=== PATIENT | female | born 1980 | race Caucasian/White ===

== ENCOUNTER → 2016-06-08 | Outpatient (CLI) | payer OTHER ==
--- NOTE | 2016-06-08 11:39 | RAD ---
DATE: 06/08/2016 EXAM: MAMMO NICOLLE DIAG RT, BREAST RIGHT HISTORY: Right breast lump COMPARISON: 10/01/2015 This study was interpreted with the benefit of Computerized Aided Detection (CAD). FINDINGS: 2-D and 3-D tomosynthesis imaging of the right breast was performed in CC and MLO projections. A BB was placed over the area of reported palpable concern at approximately the 12:00 location. The breasts are heterogeneously dense. No new or enlarging breast densities are seen. Minimal benign type calcification is present. No suspicious microcalcifications are delineated. Right breast ultrasound, 06/08/2016: A targeted ultrasound exam of the right breast was performed at the 12:00 location in the area of reported palpable concern. Heterogeneous fibroglandular shadows are present. No cystic or solid breast mass is seen. IMPRESSION: 1. Stable right mammograms without evidence of malignancy. 2. The targeted ultrasound exam shows no abnormality in the area of palpable concern. Clinical surveillance is suggested. BI-RADS CATEGORY: 2 BENIGN FINDING(S) RECOMMENDED FOLLOW-UP: CLIN FOLLOW UP IMAGING CLINICALLY INDICATED PQRS compliance statement: Patient information was entered into a reminder system with a target due date for the next mammogram. Mammography is a sensitive method for finding small breast cancers, but it does not detect them all and is not a substitute for careful clinical examination. A negative mammogram does not negate a clinically suspicious finding and should not result in delay in biopsying a clinically suspicious abnormality. "Our facility is accredited by the [employer] Mammography [employer]."
== END | disposition home or self-care (01) ==
LOC: MAMMO 09:47
PROVIDERS: ATTEND Physician Assistant
DX: N63 Unspecified lump in breast (principal)
CPT/HCPCS: 76641; G0206; G0279; 77061; 77065

== ENCOUNTER → 2017-02-27 | Outpatient (CLI) | payer OTHER ==
--- NOTE | 2017-02-27 10:42 | RAD ---
DATE: February 27, 2017 EXAM: MAMMO NICOLLE LOPEZ, BREAST RIGHT HISTORY: Persistent palpable abnormality right breast. Annual screening left breast. COMPARISON: June 08, 2016 diagnostic right mammogram and ultrasound. October 01, 2015 bilateral mammogram. TECHNIQUE: 2D digital CC and MLO views were obtained. 3D tomosynthesis imaging was performed in the CC and MLO projections. Limited right breast ultrasound also was performed. This study was interpreted with the benefit of Computerized Aided Detection (CAD). FINDINGS: The breast parenchyma is heterogeneously dense, category C, which may obscure small masses. There is no worrisome mass or area of architectural distortion. There are a few benign calcifications. There are no suspicious groupings of microcalcifications. Ultrasound of the right breast at the area of concern at the 12:00 position demonstrates no mass, cyst, or spiculated lesion. Normal parenchymal band of tissue is noted. IMPRESSION: Stable mammogram with benign findings. No sonographic evidence of malignancy. BI-RADS CATEGORY: 2 BENIGN FINDING RECOMMENDED FOLLOW-UP: 12M 12 MONTH FOLLOW-UP . Clinical discussion between this patient and her clinician is also recommended. Lack of mammographic or sonographic findings should not exclude consideration of excisional biopsy in the appropriate clinical setting. PQRS compliance statement: Patient information was entered into a reminder system with a target due date for the next mammogram. Mammography is a sensitive method for finding small breast cancers, but it does not detect them all and is not a substitute for careful clinical examination. A negative mammogram does not negate a clinically suspicious finding and should not result in delay in biopsying a clinically suspicious abnormality. "Our facility is accredited by the [employer] Mammography [employer]."
== END | disposition home or self-care (01) ==
LOC: MAMMO 08:55
PROVIDERS: ATTEND Specialist
DX: R92.1 Mammographic calcification found on diagnostic imaging of breast (principal)
CPT/HCPCS: 76641; G0204; G0279; 77062; 77066

== ENCOUNTER 2017-03-04 15:27 | Emergency (ER) | payer OTHER ==
[2017-03-04 15:36] VITALS: BP 139/84
[2017-03-04] MEDS ORDERED: DIPHTH,PERTUSS(ACELL),TET TOX 0.5 ML DISP.SYRIN. VAX IM ONE (15:45)
--- NOTE | 2017-03-04 15:51 | PHYS DOC ---
Past History Past Medical History: Anxiety, Depression, GERD Past Surgical History: No Surgical History Alcohol Use: Occasionally Drug Use: None Adult General Chief Complaint Chief Complaint: PUNCTURE WOUND HPI HPI 36-year-old female presenting to the emergency department after axially poking her right hand into some nati nails while she was pulling up carpet. She presents today for a tetanus shot up-to-date. She has mild pain in her fingers that is nonradiating intermittent and without alleviating factors. She denies any other injuries. Review of systems is negative for headache chest pain shortness of breath abdominal pain. All other review of systems is negative unless otherwise noted in history of present illness. ED course: 36-year-old female presenting to the emergency department today after getting poked on her fingers with some nati nails while pulling up carpet. Tetanus was updated. Vital signs unremarkable. Pertinent physical examination findings: Less than 0.1 mm small puncture wounds in the first and second phalanx. No lacerations or ecchymosis or abrasions to the hand. Both hands are neurovascularly intact with normal range of motion. Otherwise no other identifiable injuries. They were to return if their symptoms worsened or if they were concerned for any reason. [id number] discharge instructions and return precautions were given. Patient's questions were answered to their satisfaction. Patient is comfortable plan. Review of Systems Review of Systems SEE ABOVE. Current Medications Current Medications Current Medications Medications (Trade) Dose Ordered Sig/Kymberly Start Time Stop Time Status Last Admin Dose Admin Diphtheria/ Tetanus/Acell Pertussis (Boostrix) 0.5 ml ONCE ONCE 03/04/17 15:45 03/04/17 15:46 UNV 03/04/17 15:50 0.5 ML Allergies Allergies Allergies Coded Allergies Type Severity Reaction Last Updated Verified duloxetine Allergy Unknown 03/04/17 Yes Physical Exam Physical Exam SEE ABOVE Constitutional: Well developed, well nourished, no acute distress, non-toxic appearance. HENT: Normocephalic, atraumatic, bilateral external ears normal, oropharynx moist, no oral exudates, nose normal. [] Eyes: PERRLA, EOMI, conjunctiva normal, no discharge. Neck: Normal range of motion, no tenderness, supple, no stridor. [] Cardiovascular:Heart rate regular rhythm, no murmur Lungs & Thorax: Bilateral breath sounds clear to auscultation [] Abdomen: Bowel sounds normal, soft, no tenderness, no masses, no pulsatile masses. [] Skin: Warm, dry, no erythema, no rash. [] Back: No tenderness, no CVA tenderness. [] Extremities: SEE ABOVE Neurologic: Alert and oriented X 3, normal motor function, normal sensory function, no focal deficits noted. [] Psychologic: Affect normal, judgement normal, mood normal. [] Current Patient Data Vital Signs Vital Signs Date Time Temp Pulse Resp B/P (MAP) Pulse Ox O2 Delivery O2 Flow Rate FiO2 03/04/17 15:36 98.5 89 16 97 Room Air EKG EKG [] Radiology/Procedures Radiology/Procedures [] Course & Med Decision Making Course & Med Decision Making Pertinent Labs and Imaging studies reviewed. (See chart for details) [] Dragon Disclaimer Dragon Disclaimer This electronic medical record was generated, in whole or in part, using a voice recognition dictation system. Departure Departure: Impression: Primary Impression: Puncture wound of hand Disposition: HOME, SELF-CARE Condition: STABLE Referrals: DOMENICO ROBERSON MD (PCP) Patient Instructions: Puncture Wound, [id number] Additional Instructions: Thank you for allowing us to participate in your care today. Call your Primary Doctor tomorrow and inform them of your visit today. If you do not have a primary care provider you can ask for a list of our primary care providers. Return to the emergency department you have any new or concerning findings. This should be evaluated by the primary care physician and any necessary consulting services for continued management within a few days after discharge. Return to emergency room if you have any new or concerning symptoms including but not limited to fever, chills, nausea, vomiting, intractable pain, any new rashes, chest pain, shortness of air, uncontrolled bleeding, difficulty breathing, and/or vision loss. PETRA DE LA TORRE MD Mar 04, 2017 15:51
== END 2017-03-04 15:58 | disposition home or self-care (01) ==
LOC: ER 15:27
DX: S61.431A Puncture wound without foreign body of right hand, initial encounter (principal); K21.9 Gastro-esophageal reflux disease without esophagitis; Z88.8 Allergy status to other drugs, medicaments and biological substances; W45.0XXA Nail entering through skin, initial encounter; Y93.89 Activity, other specified; Y99.8 Other external cause status; Y92.89 Other specified places as the place of occurrence of the external cause
CPT/HCPCS: 90471; 90715; 99283-25

== ENCOUNTER → 2017-11-17 | Outpatient (CLI) | payer OTHER ==
[2017-11-17 16:07] LABS: BASO # 0.1 x10^3/uL (0.0-0.2); BASO % 1 % (0-3); EOS # 0.2 x10^3/uL (0.0-0.7); EOS % 2 % (0-3); HEMATOCRIT 40.9 % (36.0-47.0); LYMPH # 1.9 x10^3/uL (1.0-4.8); LYMPH % 22 % (24-48); MEAN CORPUSCULAR HEMOGLOBIN 30 pg (25-35); MEAN CORPUSCULAR HGB CONC 34 g/dL (31-37); MEAN CORPUSCULAR VOLUME 88 fL (79-100); MONO # 0.5 x10^3/uL (0.0-1.1); MONO % 6 % (0-9); NEUT % 69 % (31-73); PLATELET COUNT 371 x10^3/uL (140-400); RED BLOOD COUNT 4.63 x10^6/uL (3.50-5.40); RED CELL DISTRIBUTION WIDTH 13.1 % (11.5-14.5); WHITE BLOOD COUNT 8.6 x10^3/uL (4.0-11.0)
[2017-11-17 16:37] LABS: CALCIUM 8.8 mg/dL (8.5-10.1); CREATININE 0.9 mg/dL (0.6-1.0); GFR 70.1; POTASSIUM 3.8 mmol/L (3.5-5.1)
[2017-11-18 01:11] LABS: HEMOGLOBIN A1C 5.4 % (4.8-5.6)
== END | disposition home or self-care (01) ==
LOC: LAB 15:08
PROVIDERS: ATTEND Specialist
DX: R12 Heartburn (principal); K21.9 Gastro-esophageal reflux disease without esophagitis; Z68.32 Body mass index [BMI] 32.0-32.9, adult; Z85.3 Personal history of malignant neoplasm of breast
CPT/HCPCS: 36415; 80048; 83036; 84443; 85025

== ENCOUNTER → 2018-04-11 | Outpatient (CLI) | payer OTHER ==
--- NOTE | 2018-04-12 08:37 | RAD ---
DATE: 04/11/2018 EXAM: MAMMO NICOLLE SCREENING BILATERAL HISTORY: Routine screening COMPARISON: 02/27/2017 This study was interpreted with the benefit of Computerized Aided Detection (CAD). Breast Density: HETERO The breast parenchyma is heterogenously dense, which could reduce sensitivity of mammography. Breast parenchyma level C. FINDINGS: 2-D and 3-D tomosynthesis imaging was performed in CC and MLO projections. No new or enlarging breast densities are seen. No suspicious microcalcifications are evident. IMPRESSION: Stable mammograms without evidence of malignancy. BI-RADS CATEGORY: 2 BENIGN FINDING(S) RECOMMENDED FOLLOW-UP: 12M 12 MONTH FOLLOW-UP PQRS compliance statement: Patient information was entered into a reminder system with a target due date for the next mammogram. Mammography is a sensitive method for finding small breast cancers, but it does not detect them all and is not a substitute for careful clinical examination. A negative mammogram does not negate a clinically suspicious finding and should not result in delay in biopsying a clinically suspicious abnormality. "Our facility is accredited by the [employer] Mammography [employer]."
== END | disposition home or self-care (01) ==
LOC: MAMMO 15:01
PROVIDERS: ATTEND Specialist
DX: Z12.31 Encounter for screening mammogram for malignant neoplasm of breast (principal)
CPT/HCPCS: 77063; 77067

== ENCOUNTER → 2018-05-26 | Outpatient (CLI) | payer OTHER ==
[2018-05-26 11:42] LABS: BASO # 0.1 x10^3/uL (0.0-0.2); BASO % 1 % (0-3); EOS % 1 % (0-3); HEMATOCRIT 42.3 % (36.0-47.0); HEMOGLOBIN 14.2 g/dL (12.0-15.5); LYMPH # 1.5 x10^3/uL (1.0-4.8); LYMPH % 18 % (24-48); MEAN CORPUSCULAR HEMOGLOBIN 30 pg (25-35); MEAN CORPUSCULAR HGB CONC 34 g/dL (31-37); MEAN CORPUSCULAR VOLUME 89 fL (79-100); MONO # 0.7 x10^3/uL (0.0-1.1); MONO % 8 % (0-9); NEUT # 6.1 x10^3uL (1.8-7.7); NEUT % 73 % (31-73); PLATELET COUNT 367 x10^3/uL (140-400); RED BLOOD COUNT 4.74 x10^6/uL (3.50-5.40); RED CELL DISTRIBUTION WIDTH 13.1 % (11.5-14.5); WHITE BLOOD COUNT 8.4 x10^3/uL (4.0-11.0)
[2018-05-26 11:59] LABS: ALBUMIN 3.7 g/dL (3.4-5.0); CALCIUM 9.2 mg/dL (8.5-10.1); CREATININE 0.9 mg/dL (0.6-1.0); GFR 69.7; POTASSIUM 4.4 mmol/L (3.5-5.1); TOTAL BILIRUBIN 1.9 mg/dL (0.2-1.0); TOTAL PROTEIN 7.4 g/dL (6.4-8.2)
== END | disposition home or self-care (01) ==
LOC: LAB 10:52
PROVIDERS: ATTEND Physician Assistant Medical
DX: R07.2 Precordial pain (principal)
CPT/HCPCS: 36415; 80053; 85025

== ENCOUNTER 2018-05-29 04:43 | Emergency (ER) | payer OTHER ==
[~2018-05-29] VITALS: Ht 165.1 cm; Wt 84.0 kg
[2018-05-29] MEDS ORDERED: IV RINGERS SOLUTION,LACTATED 1,000 ML IV SCH (04:55)
--- NOTE | 2018-05-29 04:55 | ED.ADGEN ---
Past History Past Medical History: Anxiety, Depression, GERD (JUAN PABLO SELF MD) Past Surgical History: No Surgical History (JUAN PABLO SELF MD) Alcohol Use: Occasionally Drug Use: None (JUAN PABLO SELF MD) Adult General Chief Complaint Chief Complaint ".. I got really sick after some junk food.. and beer,.. pizza on this past Monday.. I did see Dr. Hall... and she felt may gastris or gall bladder problems..".." ..She gave me an anti acid... but it is not helping... 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 upper and epigastric quadrant pain. Patient states pain started severely on Monday after beer and pizza. Pt. only has alcohol use occasionally on week ends. Did see primary care Dr. Hall, she felt possibly acid indigestion versus gallbladder pain. Patient has a strong family history of members that required removal of gallbladder at her age. Patient denies any specific ill contacts out side of her work.. Patient denies any intake of bad food. Patient denies any history of tarry or dark stools. Patient denies any trauma. Patient denies any travel. Patient still has menstruation and does not know if she is . No history of kidney stones. No history of colitis with her or her family members. No personal history of angina or cardiac disease. No history of EGD or colonoscopy. Some history of depression and anxiety. Does give a history of periodic GERD complaints. Patient normally follows with Dr. Hall. (JUAN PABLO SELF MD) Review of Systems Review of Systems Constitutional: Denies fever or chills [] Eyes: Denies change in visual acuity, redness, or eye pain [] HENT: Denies nasal congestion or sore throat [] Respiratory: Denies cough or shortness of breath [] Cardiovascular: No additional information not addressed in HPI [] GI: Complaints of epigastric and right upper quadrant abdominal pain. Complaints of, nausea,. Denies current vomiting, bloody stools or diarrhea [] : Denies dysuria or hematuria [] Musculoskeletal: Denies back pain or joint pain [] Integument: Denies rash or skin lesions [] Neurologic: Denies headache, focal weakness or sensory changes [] Endocrine: Denies polyuria or polydipsia [] All other systems were reviewed and found to be within normal limits, except as documented in this note. (JUAN PABLO SELF MD) Family History Family History Gallbladder surgery at age 40 with family members (JUAN PABLO SELF MD) Current Medications Current Medications Current Medications Medications (Trade) Dose Ordered Sig/Kymberly Start Time Stop Time Status Last Admin Dose Admin Ceftriaxone Sodium 1 gm/ Sodium Chloride 50 ml @ 100 mls/hr 1X ONCE 05/29/18 07:30 05/29/18 07:59 Famotidine (Pepcid Vial) 20 mg 1X ONCE 05/29/18 05:00 05/29/18 05:42 DC 05/29/18 05:33 20 MG Info (Do NOT chart on this entry -- for MONITORING) 1 each PRN DAILY PRN 05/29/18 05:45 05/31/18 05:44 Iohexol (Omnipaque 240 Mg/ml) 50 ml 1X ONCE 05/29/18 05:45 05/29/18 05:46 DC 05/29/18 07:20 50 ML Iohexol (Omnipaque 300 Mg/ml) 75 ml 1X ONCE 05/29/18 05:45 05/29/18 05:46 DC 05/29/18 07:20 75 ML Lactated Ringer's 1,000 ml @ 1,000 mls/hr Q1H 05/29/18 04:55 05/29/18 05:54 DC 05/29/18 05:33 1,000 MLS/HR Metronidazole 100 ml @ 100 mls/hr 1X ONCE 05/29/18 07:30 05/29/18 08:29 Morphine Sulfate (Morphine 10mg Syringe) 10 mg 1X ONCE 05/29/18 05:00 05/29/18 05:42 DC 05/29/18 05:00 10 MG Multi-Ingredient Mouthwash/Gargle (Gi Cocktail) 20 ml 1X ONCE 05/29/18 05:00 05/29/18 05:42 DC 05/29/18 05:33 20 ML Ondansetron HCl (Zofran) 8 mg 1X ONCE 05/29/18 05:00 05/29/18 05:42 DC 05/29/18 05:31 8 MG (SURAJ LEE MD) Current Medications See nursing for home medications (JUAN PABLO SELF MD) Allergies Allergies Allergies Coded Allergies Type Severity Reaction Last Updated Verified duloxetine Allergy Unknown 05/29/18 Yes (SURAJ LEE MD) Physical Exam Physical Exam Constitutional: Moderately acute distress, non-toxic appearance. [] HENT: Normocephalic, atraumatic, bilateral external ears normal, oropharynx moist, no oral exudates, nose normal. [] Eyes: PERRLA, EOMI, conjunctiva normal, no discharge. [] Neck: Normal range of motion, no tenderness, supple, no stridor. [] Cardiovascular:Heart rate regular rhythm, no murmur [] Lungs & Thorax: Bilateral breath sounds equal apex on auscultation [] Abdomen: Bowel sounds normal, soft, epigastric and right upper quadrant tenderness, no masses, no pulsatile masses. Declines rectal exam at this time. Skin: Warm, dry, no erythema, no rash. [] Back: No tenderness, no CVA tenderness. [] Extremities: No tenderness, no cyanosis, no clubbing, ROM intact, no edema. [] No psoas sign or heeltap Neurologic: Alert and oriented X 3, normal motor function, normal sensory function, no focal deficits noted. [] Psychologic: Affect anxious, judgement normal, mood normal. [] (JUAN PABLO SELF MD) Current Patient Data Vital Signs Vital Signs Date Time Temp Pulse Resp B/P (MAP) Pulse Ox O2 Delivery O2 Flow Rate FiO2 05/29/18 05:00 16 97 Room Air 05/29/18 04:51 98.4 94 (SURAJ LEE MD) Lab Results Laboratory Tests Test 05/29/18 05:20 05/29/18 06:15 05/29/18 06:30 White Blood Count 8.7 x10^3/uL (4.0-11.0) Red Blood Count 4.86 x10^6/uL (3.50-5.40) Hemoglobin 14.6 g/dL (12.0-15.5) Hematocrit 43.6 % (36.0-47.0) Mean Corpuscular Volume 90 fL (79-100) Mean Corpuscular Hemoglobin 30 pg (25-35) Mean Corpuscular Hemoglobin Concent 34 g/dL (31-37) Red Cell Distribution Width 13.3 % (11.5-14.5) Platelet Count 356 x10^3/uL (140-400) Neutrophils (%) (Auto) 71 % (31-73) Lymphocytes (%) (Auto) 19 % (24-48) L Monocytes (%) (Auto) 8 % (0-9) Eosinophils (%) (Auto) 2 % (0-3) Basophils (%) (Auto) 1 % (0-3) Neutrophils # (Auto) 6.2 x10^3uL (1.8-7.7) Lymphocytes # (Auto) 1.6 x10^3/uL (1.0-4.8) Monocytes # (Auto) 0.7 x10^3/uL (0.0-1.1) Eosinophils # (Auto) 0.2 x10^3/uL (0.0-0.7) Basophils # (Auto) 0.1 x10^3/uL (0.0-0.2) Sodium Level 141 mmol/L (136-145) Potassium Level 3.9 mmol/L (3.5-5.1) Chloride Level 104 mmol/L (98-107) Carbon Dioxide Level 25 mmol/L (21-32) Anion Gap 12 (6-14) Blood Urea Nitrogen 8 mg/dL (7-20) Creatinine 0.8 mg/dL (0.6-1.0) Estimated GFR (Cockcroft-Gault) 79.9 Glucose Level 136 mg/dL (70-99) H Calcium Level 8.6 mg/dL (8.5-10.1) Total Bilirubin 3.7 mg/dL (0.2-1.0) H Direct Bilirubin 3.1 mg/dL (0.0-0.2) H Aspartate Amino Transferase (AST) 407 U/L (15-37) H Alanine Aminotransferase (ALT) 1194 U/L (14-59) H Alkaline Phosphatase 252 U/L (46-116) H Creatine Kinase 43 U/L (26-192) Troponin I Quantitative < 0.017 ng/mL (0-0.055) Total Protein 7.0 g/dL (6.4-8.2) Albumin 3.8 g/dL (3.4-5.0) Amylase Level 3970 U/L (25-115) H Lipase 99678 U/L (73-393) H Urine Collection Type Unknown Urine Color [place] Urine Clarity Hazy Urine pH 5.5 Urine Specific [place] 1.010 Urine Protein Neg (NEG-TRACE) Urine Glucose (UA) Neg mg/dL (NEG) Urine Ketones (Stick) 15 mg/dL (NEG) Urine Blood Neg (NEG) Urine Nitrite Neg (NEG) Urine Bilirubin Large (NEG) Urine Urobilinogen Dipstick 1 mg/dL (0.2 mg/dL) Urine Leukocyte Esterase Neg (NEG) Urine RBC 0 /HPF (0-2) Urine WBC 0 /HPF (0-4) Urine Squamous Epithelial Cells Few /LPF Urine Bacteria Few /HPF (0-FEW) POC Urine HCG, Qualitative hcg negative (Negative) (SURAJ LEE MD) Lab Results Laboratory Tests Test 05/29/18 05:20 05/29/18 06:15 05/29/18 06:30 White Blood Count 8.7 x10^3/uL (4.0-11.0) Red Blood Count 4.86 x10^6/uL (3.50-5.40) Hemoglobin 14.6 g/dL (12.0-15.5) Hematocrit 43.6 % (36.0-47.0) Mean Corpuscular Volume 90 fL (79-100) Mean Corpuscular Hemoglobin 30 pg (25-35) Mean Corpuscular Hemoglobin Concent 34 g/dL (31-37) Red Cell Distribution Width 13.3 % (11.5-14.5) Platelet Count 356 x10^3/uL (140-400) Neutrophils (%) (Auto) 71 % (31-73) Lymphocytes (%) (Auto) 19 % (24-48) L Monocytes (%) (Auto) 8 % (0-9) Eosinophils (%) (Auto) 2 % (0-3) Basophils (%) (Auto) 1 % (0-3) Neutrophils # (Auto) 6.2 x10^3uL (1.8-7.7) Lymphocytes # (Auto) 1.6 x10^3/uL (1.0-4.8) Monocytes # (Auto) 0.7 x10^3/uL (0.0-1.1) Eosinophils # (Auto) 0.2 x10^3/uL (0.0-0.7) Basophils # (Auto) 0.1 x10^3/uL (0.0-0.2) Sodium Level 141 mmol/L (136-145) Potassium Level 3.9 mmol/L (3.5-5.1) Chloride Level 104 mmol/L (98-107) Carbon Dioxide Level 25 mmol/L (21-32) Anion Gap 12 (6-14) Blood Urea Nitrogen 8 mg/dL (7-20) Creatinine 0.8 mg/dL (0.6-1.0) Estimated GFR (Cockcroft-Gault) 79.9 Glucose Level 136 mg/dL (70-99) H Calcium Level 8.6 mg/dL (8.5-10.1) Total Bilirubin 3.7 mg/dL (0.2-1.0) H Direct Bilirubin 3.1 mg/dL (0.0-0.2) H Aspartate Amino Transferase (AST) 407 U/L (15-37) H Alanine Aminotransferase (ALT) 1194 U/L (14-59) H Alkaline Phosphatase 252 U/L (46-116) H Creatine Kinase 43 U/L (26-192) Troponin I Quantitative < 0.017 ng/mL (0-0.055) Total Protein 7.0 g/dL (6.4-8.2) Albumin 3.8 g/dL (3.4-5.0) Amylase Level 3970 U/L (25-115) H Lipase 57938 U/L (73-393) H Hepatitis A IgM Antibody Nonreactive (Nonreactive) Hepatitis B Surface Antigen Nonreactive (Nonreactive) Hepatitis B Core IgM Antibody Nonreactive (Nonreactive) Hepatitis C IgG Antibody Nonreactive (Nonreactive) Urine Collection Type Unknown Urine Color [place] Urine Clarity Hazy Urine pH 5.5 Urine Specific [place] 1.010 Urine Protein Neg (NEG-TRACE) Urine Glucose (UA) Neg mg/dL (NEG) Urine Ketones (Stick) 15 mg/dL (NEG) Urine Blood Neg (NEG) Urine Nitrite Neg (NEG) Urine Bilirubin Large (NEG) Urine Urobilinogen Dipstick 1 mg/dL (0.2 mg/dL) Urine Leukocyte Esterase Neg (NEG) Urine RBC 0 /HPF (0-2) Urine WBC 0 /HPF (0-4) Urine Squamous Epithelial Cells Few /LPF Urine Bacteria Few /HPF (0-FEW) POC Urine HCG, Qualitative hcg negative (Negative) (JUAN PABLO SELF MD) EKG EKG My interpretation EKG shows a sinus rhythm at 68 bpm. Mild leftward axis. But no findings acute STEMI with contralateral changes.[] (JUAN PABLO SELF MD) Radiology/Procedures Radiology/Procedures My interpretation of acute abdomen film shows no acute cardio pulmonary findings. No free air in the diaphragm. Nonspecific bowel gas pattern. CT of abdomen shows biliary sludge but no obvious findings of cholecystitis. See formal report when available[] (JUAN PABLO SELF MD) Course & Med Decision Making Course & Med Decision Making Pertinent Labs and Imaging studies reviewed. (See chart for details) Discussed presentation, testing and tx. plan with Dr. Barnes and Dr. Allen. Dr. Barnes will admit for medical management. Dr. Allen consult. Patient transferred to [facility] [] (JUAN PABLO SELF MD) Course & Med Decision Making I was not involved in the care of this patient. (SURAJ LEE MD) Final Impression Final Impression 1. Abdomen pain[] 2. Elevated Amylase 3970/ Lipase 73,080, AST 407, Alt 1194, Alk Phos 252 3. Suspect acute cholecystitis and pancreatitis (JUAN PABLO SELF MD) Dragon Disclaimer Dragon Disclaimer This electronic medical record was generated, in whole or in part, using a voice recognition dictation system. (JUAN PABLO SELF MD) Discharge Summary Brief Hospital Course Allergies Allergies Coded Allergies Type Severity Reaction Last Updated Verified duloxetine Allergy Unknown 05/29/18 Yes (JUAN PABLO SELF MD) Vital Signs Vital Signs Date Time Temp Pulse Resp B/P (MAP) Pulse Ox O2 Delivery O2 Flow Rate FiO2 05/29/18 10:18 94 18 120/83 (95) 95 Room Air 05/29/18 04:51 98.4 (JUAN PABLO SELF MD) Lab Results Laboratory Tests Test 05/29/18 05:20 05/29/18 06:15 05/29/18 06:30 White Blood Count 8.7 x10^3/uL (4.0-11.0) Red Blood Count 4.86 x10^6/uL (3.50-5.40) Hemoglobin 14.6 g/dL (12.0-15.5) Hematocrit 43.6 % (36.0-47.0) Mean Corpuscular Volume 90 fL (79-100) Mean Corpuscular Hemoglobin 30 pg (25-35) Mean Corpuscular Hemoglobin Concent 34 g/dL (31-37) Red Cell Distribution Width 13.3 % (11.5-14.5) Platelet Count 356 x10^3/uL (140-400) Neutrophils (%) (Auto) 71 % (31-73) Lymphocytes (%) (Auto) 19 % (24-48) Monocytes (%) (Auto) 8 % (0-9) Eosinophils (%) (Auto) 2 % (0-3) Basophils (%) (Auto) 1 % (0-3) Neutrophils # (Auto) 6.2 x10^3uL (1.8-7.7) Lymphocytes # (Auto) 1.6 x10^3/uL (1.0-4.8) Monocytes # (Auto) 0.7 x10^3/uL (0.0-1.1) Eosinophils # (Auto) 0.2 x10^3/uL (0.0-0.7) Basophils # (Auto) 0.1 x10^3/uL (0.0-0.2) Sodium Level 141 mmol/L (136-145) Potassium Level 3.9 mmol/L (3.5-5.1) Chloride Level 104 mmol/L (98-107) Carbon Dioxide Level 25 mmol/L (21-32) Anion Gap 12 (6-14) Blood Urea Nitrogen 8 mg/dL (7-20) Creatinine 0.8 mg/dL (0.6-1.0) Estimated GFR (Cockcroft-Gault) 79.9 Glucose Level 136 mg/dL (70-99) Calcium Level 8.6 mg/dL (8.5-10.1) Total Bilirubin 3.7 mg/dL (0.2-1.0) Direct Bilirubin 3.1 mg/dL (0.0-0.2) Aspartate Amino Transf (AST/SGOT) 407 U/L (15-37) Alanine Aminotransferase (ALT/SGPT) 1194 U/L (14-59) Alkaline Phosphatase 252 U/L (46-116) Creatine Kinase 43 U/L (26-192) Troponin I Quantitative < 0.017 ng/mL (0-0.055) Total Protein 7.0 g/dL (6.4-8.2) Albumin 3.8 g/dL (3.4-5.0) Amylase Level 3970 U/L (25-115) Lipase 66025 U/L (73-393) Hepatitis A IgM Antibody Nonreactive (Nonreactive) Hepatitis B Surface Antigen Nonreactive (Nonreactive) Hepatitis B Core IgM Antibody Nonreactive (Nonreactive) Hepatitis C IgG Antibody Nonreactive (Nonreactive) Urine Collection Type Unknown Urine Color [place] Urine Clarity Hazy Urine pH 5.5 Urine Specific [place] 1.010 Urine Protein Neg (NEG-TRACE) Urine Glucose (UA) Neg mg/dL (NEG) Urine Ketones (Stick) 15 mg/dL (NEG) Urine Blood Neg (NEG) Urine Nitrite Neg (NEG) Urine Bilirubin Large (NEG) Urine Urobilinogen Dipstick 1 mg/dL (0.2 mg/dL) Urine Leukocyte Esterase Neg (NEG) Urine RBC 0 /HPF (0-2) Urine WBC 0 /HPF (0-4) Urine Squamous Epithelial Cells Few /LPF Urine Bacteria Few /HPF (0-FEW) Bedside Urine HCG, Qualitative hcg negative (Negative) (JUAN PABLO SELF MD) Brief Hospital Course Ms. Villafana is a 38 old female who presented with Rt. upper quadrant pain. Suspect acute cholecystitis and acute pancreatitis. Transfer to [facility]- Dr Barnes admitting and Dr. Allen consulting. (JUAN PABLO SELF MD) Discharge Information Condition at Discharge: Stable Disposition/Orders: D/C to Another Facility (JUAN PABLO SELF MD) Dischare Medications Current Medications Multi-Ingredient Mouthwash/Gargle (Gi Cocktail) 20 ml 1X ONCE PO Last administered on 05/29/18at 05:33; Admin Dose 20 ML; Start 05/29/18 at 05:00; Stop 05/29/18 at 05:42; Status DC Lactated Ringer's 1,000 ml @ 1,000 mls/hr Q1H IV Last administered on at 05:33; Admin Dose 1,000 MLS/HR; Start 05/29/18 at 04:55; Stop 05/29/18 at 05:54; Status DC Ondansetron HCl (Zofran) 8 mg 1X ONCE IV Last administered on 05/29/18at 05:31 ; Admin Dose 8 MG; Start 05/29/18 at 05:00; Stop 05/29/18 at 05:42; Status DC Famotidine (Pepcid Vial) 20 mg 1X ONCE IVP Last administered on 05/29/18at 05: 33; Admin Dose 20 MG; Start 05/29/18 at 05:00; Stop 05/29/18 at 05:42; Status DC Morphine Sulfate (Morphine 10mg Syringe) 10 mg 1X ONCE SQ Last administered on 05/29/18at 05:00; Admin Dose 10 MG; Start 05/29/18 at 05:00; Stop 05/29/18 at 05:42; Status DC Iohexol (Omnipaque 240 Mg/ml) 50 ml STK-MED ONCE .ROUTE ; Start 05/29/18 at 05: 20; Stop 05/29/18 at 05:21; Status DC Iohexol (Omnipaque 240 Mg/ml) 50 ml 1X ONCE PO Last administered on 05/29/18at 07:20; Admin Dose 50 ML; Start 05/29/18 at 05:45; Stop 05/29/18 at 05:46; Status DC Iohexol (Omnipaque 300 Mg/ml) 75 ml 1X ONCE IV Last administered on 05/29/18at 07:20; Admin Dose 75 ML; Start 05/29/18 at 05:45; Stop 05/29/18 at 05:46; Status DC Info (Do NOT chart on this entry -- for MONITORING) 1 each PRN DAILY PRN MC SEE COMMENTS; Start 05/29/18 at 05:45; Stop 05/31/18 at 05:44 Ceftriaxone Sodium 1 gm/ Sodium Chloride 50 ml @ 100 mls/hr 1X ONCE IV Last administered on 05/29/18at 07:51; Admin Dose 100 MLS/HR; Start 05/29/18 at 07:30 ; Stop 05/29/18 at 08:00; Status DC Metronidazole 100 ml @ 100 mls/hr 1X ONCE IV Last administered on 05/29/18at 07:59; Admin Dose 100 MLS/HR; Start 05/29/18 at 07:30; Stop 05/29/18 at 08:29; Status DC Sodium Chloride 50 ml @ As Directed STK-MED ONCE .ROUTE ; Start 05/29/18 at 07: 26; Stop 05/29/18 at 07:27; Status DC Ceftriaxone Sodium (Rocephin) 1 gm STK-MED ONCE .ROUTE ; Start 05/29/18 at 07:26 ; Stop 05/29/18 at 07:27; Status DC Morphine Sulfate (Morphine 4mg Syringe) 4 mg 1X ONCE IV Last administered on at 09:48; Admin Dose 4 MG; Start 05/29/18 at 10:10; Stop 05/29/18 at 10:11 ; Status DC Ondansetron HCl (Zofran) 4 mg 1X ONCE IV Last administered on 05/29/18at 09:49 ; Admin Dose 4 MG; Start 05/29/18 at 10:10; Stop 05/29/18 at 10:11; Status DC Ondansetron HCl (Zofran) 4 mg STK-MED ONCE .ROUTE ; Start 05/29/18 at 09:45; Stop 05/29/18 at 09:46; Status DC Morphine Sulfate (Morphine 4mg Syringe) 4 mg STK-MED ONCE .ROUTE ; Start at 09:46; Stop 05/29/18 at 09:47; Status DC Piperacillin Sod/ Tazobactam Sod 3.375 gm/Sodium Chloride 50 ml @ 100 mls/hr Q8H IV ; Start 05/29/18 at 12:00; Stop 05/29/18 at 12:03; Status DC (JUAN PABLO SELF MD) Discharge Summary Brief Hospital Course Allergies Allergies Coded Allergies Type Severity Reaction Last Updated Verified duloxetine Allergy Unknown 05/29/18 Yes (JUAN PABLO SELF MD) Vital Signs Vital Signs Date Time Temp Pulse Resp B/P (MAP) Pulse Ox O2 Delivery O2 Flow Rate FiO2 05/29/18 10:18 94 18 120/83 (95) 95 Room Air 05/29/18 04:51 98.4 (JUAN PABLO SELF MD) Lab Results Laboratory Tests Test 05/29/18 05:20 05/29/18 06:15 05/29/18 06:30 White Blood Count 8.7 x10^3/uL (4.0-11.0) Red Blood Count 4.86 x10^6/uL (3.50-5.40) Hemoglobin 14.6 g/dL (12.0-15.5) Hematocrit 43.6 % (36.0-47.0) Mean Corpuscular Volume 90 fL (79-100) Mean Corpuscular Hemoglobin 30 pg (25-35) Mean Corpuscular Hemoglobin Concent 34 g/dL (31-37) Red Cell Distribution Width 13.3 % (11.5-14.5) Platelet Count 356 x10^3/uL (140-400) Neutrophils (%) (Auto) 71 % (31-73) Lymphocytes (%) (Auto) 19 % (24-48) Monocytes (%) (Auto) 8 % (0-9) Eosinophils (%) (Auto) 2 % (0-3) Basophils (%) (Auto) 1 % (0-3) Neutrophils # (Auto) 6.2 x10^3uL (1.8-7.7) Lymphocytes # (Auto) 1.6 x10^3/uL (1.0-4.8) Monocytes # (Auto) 0.7 x10^3/uL (0.0-1.1) Eosinophils # (Auto) 0.2 x10^3/uL (0.0-0.7) Basophils # (Auto) 0.1 x10^3/uL (0.0-0.2) Sodium Level 141 mmol/L (136-145) Potassium Level 3.9 mmol/L (3.5-5.1) Chloride Level 104 mmol/L (98-107) Carbon Dioxide Level 25 mmol/L (21-32) Anion Gap 12 (6-14) Blood Urea Nitrogen 8 mg/dL (7-20) Creatinine 0.8 mg/dL (0.6-1.0) Estimated GFR (Cockcroft-Gault) 79.9 Glucose Level 136 mg/dL (70-99) Calcium Level 8.6 mg/dL (8.5-10.1) Total Bilirubin 3.7 mg/dL (0.2-1.0) Direct Bilirubin 3.1 mg/dL (0.0-0.2) Aspartate Amino Transf (AST/SGOT) 407 U/L (15-37) Alanine Aminotransferase (ALT/SGPT) 1194 U/L (14-59) Alkaline Phosphatase 252 U/L (46-116) Creatine Kinase 43 U/L (26-192) Troponin I Quantitative < 0.017 ng/mL (0-0.055) Total Protein 7.0 g/dL (6.4-8.2) Albumin 3.8 g/dL (3.4-5.0) Amylase Level 3970 U/L (25-115) Lipase 22903 U/L (73-393) Hepatitis A IgM Antibody Nonreactive (Nonreactive) Hepatitis B Surface Antigen Nonreactive (Nonreactive) Hepatitis B Core IgM Antibody Nonreactive (Nonreactive) Hepatitis C IgG Antibody Nonreactive (Nonreactive) Urine Collection Type Unknown Urine Color [place] Urine Clarity Hazy Urine pH 5.5 Urine Specific [place] 1.010 Urine Protein Neg (NEG-TRACE) Urine Glucose (UA) Neg mg/dL (NEG) Urine Ketones (Stick) 15 mg/dL (NEG) Urine Blood Neg (NEG) Urine Nitrite Neg (NEG) Urine Bilirubin Large (NEG) Urine Urobilinogen Dipstick 1 mg/dL (0.2 mg/dL) Urine Leukocyte Esterase Neg (NEG) Urine RBC 0 /HPF (0-2) Urine WBC 0 /HPF (0-4) Urine Squamous Epithelial Cells Few /LPF Urine Bacteria Few /HPF (0-FEW) Bedside Urine HCG, Qualitative hcg negative (Negative) (JUAN PABLO SELF MD) Brief Hospital Course 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 pain. Found to have acute cholecystitis and pancreatitis. Transfer [facility]- Dr. Barnes and Consult Dr. Allen. (JUAN PABLO SELF MD) Discharge Information Condition at Discharge: Improved, Stable Disposition/Orders: D/C to Another Facility (JUAN PABLO SELF MD) Dischare Medications Current Medications Multi-Ingredient Mouthwash/Gargle (Gi Cocktail) 20 ml 1X ONCE PO Last administered on 05/29/18at 05:33; Admin Dose 20 ML; Start 05/29/18 at 05:00; Stop 05/29/18 at 05:42; Status DC Lactated Ringer's 1,000 ml @ 1,000 mls/hr Q1H IV Last administered on at 05:33; Admin Dose 1,000 MLS/HR; Start 05/29/18 at 04:55; Stop 05/29/18 at 05:54; Status DC Ondansetron HCl (Zofran) 8 mg 1X ONCE IV Last administered on 05/29/18at 05:31 ; Admin Dose 8 MG; Start 05/29/18 at 05:00; Stop 05/29/18 at 05:42; Status DC Famotidine (Pepcid Vial) 20 mg 1X ONCE IVP Last administered on 05/29/18at 05: 33; Admin Dose 20 MG; Start 05/29/18 at 05:00; Stop 05/29/18 at 05:42; Status DC Morphine Sulfate (Morphine 10mg Syringe) 10 mg 1X ONCE SQ Last administered on 05/29/18at 05:00; Admin Dose 10 MG; Start 05/29/18 at 05:00; Stop 05/29/18 at 05:42; Status DC Iohexol (Omnipaque 240 Mg/ml) 50 ml STK-MED ONCE .ROUTE ; Start 05/29/18 at 05: 20; Stop 05/29/18 at 05:21; Status DC Iohexol (Omnipaque 240 Mg/ml) 50 ml 1X ONCE PO Last administered on 05/29/18at 07:20; Admin Dose 50 ML; Start 05/29/18 at 05:45; Stop 05/29/18 at 05:46; Status DC Iohexol (Omnipaque 300 Mg/ml) 75 ml 1X ONCE IV Last administered on 05/29/18at 07:20; Admin Dose 75 ML; Start 05/29/18 at 05:45; Stop 05/29/18 at 05:46; Status DC Info (Do NOT chart on this entry -- for MONITORING) 1 each PRN DAILY PRN MC SEE COMMENTS; Start 05/29/18 at 05:45; Stop 05/31/18 at 05:44 Ceftriaxone Sodium 1 gm/ Sodium Chloride 50 ml @ 100 mls/hr 1X ONCE IV Last administered on 05/29/18at 07:51; Admin Dose 100 MLS/HR; Start 05/29/18 at 07:30 ; Stop 05/29/18 at 08:00; Status DC Metronidazole 100 ml @ 100 mls/hr 1X ONCE IV Last administered on 05/29/18at 07:59; Admin Dose 100 MLS/HR; Start 05/29/18 at 07:30; Stop 05/29/18 at 08:29; Status DC Sodium Chloride 50 ml @ As Directed STK-MED ONCE .ROUTE ; Start 05/29/18 at 07: 26; Stop 05/29/18 at 07:27; Status DC Ceftriaxone Sodium (Rocephin) 1 gm STK-MED ONCE .ROUTE ; Start 05/29/18 at 07:26 ; Stop 05/29/18 at 07:27; Status DC Morphine Sulfate (Morphine 4mg Syringe) 4 mg 1X ONCE IV Last administered on at 09:48; Admin Dose 4 MG; Start 05/29/18 at 10:10; Stop 05/29/18 at 10:11 ; Status DC Ondansetron HCl (Zofran) 4 mg 1X ONCE IV Last administered on 05/29/18at 09:49 ; Admin Dose 4 MG; Start 05/29/18 at 10:10; Stop 05/29/18 at 10:11; Status DC Ondansetron HCl (Zofran) 4 mg STK-MED ONCE .ROUTE ; Start 05/29/18 at 09:45; Stop 05/29/18 at 09:46; Status DC Morphine Sulfate (Morphine 4mg Syringe) 4 mg STK-MED ONCE .ROUTE ; Start at 09:46; Stop 05/29/18 at 09:47; Status DC Piperacillin Sod/ Tazobactam Sod 3.375 gm/Sodium Chloride 50 ml @ 100 mls/hr Q8H IV ; Start 05/29/18 at 12:00; Stop 05/29/18 at 12:03; Status DC (JUAN PABLO SELF MD) Dragon Disclaimer This chart was dictated in whole or in part using Voice Recognition software in a busy, high-work load, and often noisy Emergency Department environment. It may contain unintended and wholly unrecognized errors or omissions. (JUAN PABLO SELF MD) Dragon Disclaimer This chart was dictated in whole or in part using Voice Recognition software in a busy, high-work load, and often noisy Emergency Department environment. It may contain unintended and wholly unrecognized errors or omissions. (JUAN PABLO SELF MD) JUAN PABLO SELF MD May 29, 2018 04:55 SURAJ LEE MD May 29, 2018 07:26
[2018-05-29] MEDS ORDERED: FAMOTIDINE 20 MG/2 ML VIAL IVP ONE (05:00)
[2018-05-29] MEDS ORDERED: LIDO:MAALOX 1:1 20 ML SINGLE DOSE. PO ONE (05:00)
[2018-05-29] MEDS ORDERED: MORPHINE SULFATE 10 MG/ML SYRINGE. SQ ONE (05:00)
[2018-05-29] MEDS ORDERED: ONDANSETRON PF 4 MG/2 ML VIAL. IV ONE ×2 (05:00→10:10)
[2018-05-29] MEDS ORDERED: IOHEXOL 240 MG/ML 50ML VIAL. ONE (05:20)
[2018-05-29 05:43] LABS: BASO # 0.1 x10^3/uL (0.0-0.2); BASO % 1 % (0-3); EOS # 0.2 x10^3/uL (0.0-0.7); EOS % 2 % (0-3); HEMATOCRIT 43.6 % (36.0-47.0); HEMOGLOBIN 14.6 g/dL (12.0-15.5); LYMPH # 1.6 x10^3/uL (1.0-4.8); LYMPH % 19 % (24-48); MEAN CORPUSCULAR HEMOGLOBIN 30 pg (25-35); MEAN CORPUSCULAR HGB CONC 34 g/dL (31-37); MEAN CORPUSCULAR VOLUME 90 fL (79-100); MONO # 0.7 x10^3/uL (0.0-1.1); MONO % 8 % (0-9); NEUT # 6.2 x10^3uL (1.8-7.7); NEUT % 71 % (31-73); PLATELET COUNT 356 x10^3/uL (140-400); RED BLOOD COUNT 4.86 x10^6/uL (3.50-5.40); RED CELL DISTRIBUTION WIDTH 13.3 % (11.5-14.5); WHITE BLOOD COUNT 8.7 x10^3/uL (4.0-11.0)
[2018-05-29] MEDS ORDERED: CONTRAST GIVEN MC PRN (05:45)
[2018-05-29] MEDS ORDERED: IOHEXOL 300 MG/ML 75 ML VIAL. IV ONE (05:45)
[2018-05-29] MEDS ORDERED: IOHEXOL 240 MG/ML 50ML VIAL. PO ONE (05:45)
[2018-05-29 06:03] LABS: ALBUMIN 3.8 g/dL (3.4-5.0); CALCIUM 8.6 mg/dL (8.5-10.1); CREATININE 0.8 mg/dL (0.6-1.0); DIRECT BILIRUBIN 3.1 mg/dL (0.0-0.2); GFR 79.9; POTASSIUM 3.9 mmol/L (3.5-5.1); TOTAL BILIRUBIN 3.7 mg/dL (0.2-1.0)
--- NOTE | 2018-05-29 06:05 | EKG ---
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
[2018-05-29 06:43] LABS: BILIRUBIN,URINE LARGE (NEG); CLARITY,URINE HAZY; COLOR,URINE AMBER; GLUCOSE,URINE NEG (NEG); NITRITE,URINE NEG (NEG); UROBILINOGEN,URINE 1 mg/dL (0.2 mg/dL)
[2018-05-29 06:44] LABS: BACTERIA,URINE FEW /HPF (0-FEW); RBC,URINE 0 /HPF (0-2); SQUAMOUS EPITHELIAL CELL,UR FEW /LPF; WBC,URINE 0 /HPF (0-4)
[2018-05-29] MEDS ORDERED: IV NORMAL SALINE 50ML 50 ML ONE (07:26)
[2018-05-29] MEDS ORDERED: cefTRIAXone SODIUM 1 GM VIAL ONE (07:26)
--- NOTE | 2018-05-29 07:45 | RAD ---
DATE OF SERVICE: 05/29/2018 7:14 AM EXAM: CT scan of the abdomen and pelvis with intravenous contrast. CLINICAL HISTORY: Abdominal pain, nausea. TECHNIQUE: Axial CT images were obtained through the abdomen and pelvis following the administration of intravenous and oral contrast. Multiplanar 2D reformatted images were also reviewed. Dose lowering technique(s) such as automated exposure control, iterative reconstruction, and mA and/or KV adjustment for patient size was utilized for this examination. CONTRAST: 75 ml of [id number]. COMPARISON: Transabdominal radiographs dated 05/29/2018. FINDINGS: Gallbladder sludge and/or cholelithiasis is present without CT evidence for acute cholecystitis. There is mild to moderate central intrahepatic and milder extrahepatic biliary ductal dilatation. The common hepatic/common bile duct measures up to 8-9 mm in diameter. No definite obstructing lesion is seen at this examination, however, biliary ductal obstruction possibly secondary to choledocholithiasis should be considered. Further evaluation with MRCP/ERCP can be considered. No focal hepatic lesion is identified. The pancreas, spleen, adrenal glands, and kidneys are unremarkable in appearance. The gynecologic structures demonstrate an unremarkable CT appearance. No focal intra-abdominal inflammatory process, bowel obstruction, pneumoperitoneum, or free fluid is seen in the abdomen or pelvis. The appendix is normal in appearance. There are a few colonic diverticula without diverticulitis. The abdominal aorta is normal in course and caliber without aneurysm or dissection Visualized portions of the lung bases are clear. The skeleton is unremarkable in appearance. IMPRESSION: 1. Gallbladder sludge and/or cholelithiasis. 2. Biliary ductal dilatation without definite CT-evident obstructing lesion. 3. Colonic diverticula. Electronically signed by: Ciro Dillard MD (05/29/2018 7:42 AM) [facility] [id number]
--- NOTE | 2018-05-29 07:47 | RAD ---
Acute abdomen series with chest, 3 views, 05/29/2018: HISTORY: Nausea Gas is present in nondilated loops of large and small bowel. There is a moderate amount stool in scattered portions of the colon. No free air seen in the abdomen. There is no evidence organomegaly. Pelvic calcifications are probably phleboliths. The heart size is normal. There is minimal linear atelectasis or scarring in the left base. No pulmonary consolidation is seen. There is no evidence of pleural fluid. IMPRESSION: No acute abdominal abnormality is detected. Electronically signed by: Mike Quezada MD (05/29/2018 7:44 AM) [facility]
[2018-05-29] MEDS ORDERED: ONDANSETRON PF 4 MG/2 ML VIAL. ONE (09:45)
[2018-05-29] MEDS ORDERED: MORPHINE SULFATE 4 MG/ML DISP.SYRIN. ONE (09:46)
[2018-05-29] MEDS ORDERED: MORPHINE SULFATE 4 MG/ML DISP.SYRIN. IV ONE (10:10)
[2018-05-29 10:18] VITALS: BP 120/83
[2018-05-29] MEDS ORDERED: PIPERACILLIN/TAZOBACTAM 3.375 GM in IV NORMAL SALINE 50ML 50 ML IV SCH (12:00)
== END 2018-05-29 11:00 | disposition short-term general hospital (02) ==
LOC: ER 04:43
DX: R10.13 Epigastric pain (principal); R10.11 Right upper quadrant pain; R11.0 Nausea; R74.8 Abnormal levels of other serum enzymes; K21.9 Gastro-esophageal reflux disease without esophagitis; F41.9 Anxiety disorder, unspecified; F32.9 Major depressive disorder, single episode, unspecified; Z88.8 Allergy status to other drugs, medicaments and biological substances
CPT/HCPCS: 36415; 74022; 74177; 80048; 80076; 81001; 81025; 82150; 82550; 83690; 84484; 85025; 86705; 86709; 86803; 87340; 93005; 96365; 96366; 96368; 96372; 96375; 96376; 99285; J0696; J2270; J2405; J3490; J7120; Q9966; Q9967

== ENCOUNTER → 2018-06-04 | Outpatient (CLI) | payer OTHER ==
[2018-05-29 10:18] VITALS: BP 120/83
== END | disposition home or self-care (01) ==
LOC: LAB 15:09
PROVIDERS: ATTEND Surgery
DX: Z48.815 Encounter for surgical aftercare following surgery on the digestive system (principal); Z90.49 Acquired absence of other specified parts of digestive tract
CPT/HCPCS: 36415; 83690

== ENCOUNTER → 2018-06-05 | Outpatient (CLI) | payer OTHER ==
[2018-05-29 10:18] VITALS: BP 120/83
== END | disposition home or self-care (01) ==
LOC: LAB 10:05
PROVIDERS: ATTEND Surgery
DX: Z09 Encounter for follow-up examination after completed treatment for conditions other than malignant neoplasm (principal); Z90.49 Acquired absence of other specified parts of digestive tract
CPT/HCPCS: 36415; 83690

== ENCOUNTER → 2018-06-11 | Outpatient (CLI) | payer OTHER ==
[2018-05-29 10:18] VITALS: BP 120/83
== END | disposition home or self-care (01) ==
LOC: LAB 07:49
PROVIDERS: ATTEND Surgery
DX: Z48.815 Encounter for surgical aftercare following surgery on the digestive system (principal); Z90.49 Acquired absence of other specified parts of digestive tract
CPT/HCPCS: 36415; 83690

== ENCOUNTER → 2018-06-15 | Outpatient (CLI) | payer OTHER ==
[2018-05-29 10:18] VITALS: BP 120/83
== END | disposition home or self-care (01) ==
LOC: LAB 09:50
PROVIDERS: ATTEND Surgery
DX: K85.90 Acute pancreatitis without necrosis or infection, unspecified (principal)
CPT/HCPCS: 36415; 83690

== ENCOUNTER → 2019-04-01 | Outpatient (CLI) | payer OTHER | END | disposition home or self-care (01) | LOC: LAB 09:59 | PROVIDERS: ATTEND Physician Assistant Medical | DX: Z01.419 Encounter for gynecological examination (general) (routine) without abnormal findings (principal) | CPT/HCPCS: 88175 ==

== ENCOUNTER → 2019-04-12 | Outpatient (CLI) | payer OTHER ==
--- NOTE | 2019-04-12 17:17 | RAD ---
DATE: 04/12/2019. EXAM: MAMMO NICOLLE SCREENING BILATERAL. HISTORY: Routine mammographic screening. COMPARISON: 04/11/2018. This study was interpreted with the benefit of Computerized Aided Detection (CAD). FINDINGS: Breast Density: HETERO The breast parenchyma is heterogenously dense, which could reduce sensitivity of mammography. Breast parenchyma level C.. There are no suspicious masses, microcalcifications or architectural distortion. Scattered calcifications are benign. The parenchymal pattern is stable. BI-RADS CATEGORY: 2 BENIGN FINDING(S). RECOMMENDED FOLLOW-UP: 12M 12 MONTH FOLLOW-UP. PQRS compliance statement: Patient information was entered into a reminder system with a target due date 04/12/2020 for the next mammogram. Mammography is a sensitive method for finding small breast cancers, but it does not detect them all and is not a substitute for careful clinical examination. A negative mammogram does not negate a clinically suspicious finding and should not result in delay in biopsying a clinically suspicious abnormality. "Our facility is accredited by the [employer] Mammography [employer]."
== END | disposition home or self-care (01) ==
LOC: MAMMO 09:56
PROVIDERS: ATTEND Physician Assistant Medical
DX: Z12.31 Encounter for screening mammogram for malignant neoplasm of breast (principal); N64.89 Other specified disorders of breast
CPT/HCPCS: 77063; 77067

== ENCOUNTER → 2019-06-29 | Outpatient (CLI) | payer OTHER ==
--- NOTE | 2019-06-29 15:22 | RAD ---
EXAM: Lumbar spine, 3 views. HISTORY: Pain. COMPARISON: None. FINDINGS: 3 views of the lumbar spine are obtained. There are 5 nonrib-bearing lumbar segments. The vertebral bodies are normal in height. There is mild disc space narrowing at L5-S1. This can be physiologic or due to degenerative disc disease. There is no fracture. There is no listhesis. IMPRESSION: No acute osseous finding. Electronically signed by: Viki Tracy MD (06/29/2019 3:19 PM) [facility] [place]
== END | disposition home or self-care (01) ==
LOC: LAB 09:16
PROVIDERS: ATTEND Registered Nurse
DX: M48.07 Spinal stenosis, lumbosacral region (principal); R31.9 Hematuria, unspecified
CPT/HCPCS: 72100; 87086

== ENCOUNTER → 2019-10-31 | Outpatient (CLI) | payer OTHER | LOC: LAB 14:52 | PROVIDERS: ATTEND Internal Medicine Cardiovascular Disease | DX: Z20.828 Contact with and (suspected) exposure to other viral communicable diseases (principal) | CPT/HCPCS: 36415; U0003 ==

== ENCOUNTER → 2019-11-07 | Outpatient (CLI) | payer OTHER | END | disposition home or self-care (01) | LOC: LAB 02:04 | PROVIDERS: ATTEND Internal Medicine Cardiovascular Disease | DX: Z20.828 Contact with and (suspected) exposure to other viral communicable diseases (principal) | CPT/HCPCS: C9803; U0003; 36415 ==

== ENCOUNTER → 2019-12-31 | Outpatient (CLI) | payer OTHER ==
[2019-12-31 16:42] LABS: BASO # 0.1 x10^3/uL (0.0-0.2); BASO % 1 % (0-3); EOS % 0 % (0-3); HEMATOCRIT 41.8 % (36.0-47.0); HEMOGLOBIN 13.8 g/dL (12.0-15.5); LYMPH # 2.1 x10^3/uL (1.0-4.8); LYMPH % 18 % (24-48); MEAN CORPUSCULAR HEMOGLOBIN 30 pg (25-35); MEAN CORPUSCULAR HGB CONC 33 g/dL (31-37); MEAN CORPUSCULAR VOLUME 90 fL (79-100); MONO # 0.7 x10^3/uL (0.0-1.1); MONO % 6 % (0-9); NEUT # 9.2 x10^3uL (1.8-7.7); NEUT % 76 % (31-73); PLATELET COUNT 389 x10^3/uL (140-400); RED BLOOD COUNT 4.63 x10^6/uL (3.50-5.40); RED CELL DISTRIBUTION WIDTH 13.2 % (11.5-14.5); WHITE BLOOD COUNT 12.1 x10^3/uL (4.0-11.0)
[2019-12-31 16:59] LABS: ALBUMIN/GLOBULIN RATIO 1.1 (1.0-1.7); C REACTIVE PROTEIN 7.8 mg/L (0-3.3); CALCIUM 9.2 mg/dL (8.5-10.1); CREATININE 1.3 mg/dL (0.6-1.0); GFR 45.4; TOTAL BILIRUBIN 0.6 mg/dL (0.2-1.0); TOTAL PROTEIN 7.6 g/dL (6.4-8.2)
[2020-01-01 15:14] LABS: FREE T4 1.25 ng/dL (0.76-1.46); THYROID STIM HORMONE (TSH) 1.746 uIU/mL (0.358-3.740)
== END | disposition home or self-care (01) ==
LOC: LAB 16:10
PROVIDERS: ATTEND Physician Assistant Medical
DX: R19.7 Diarrhea, unspecified (principal)
CPT/HCPCS: 36415; 80053; 84439; 84443; 84481; 85025; 86140

== ENCOUNTER → 2020-04-24 | Outpatient (CLI) | payer OTHER ==
[2020-04-24 08:25] LABS: HEMATOCRIT 38.3 % (36.0-47.0); RED BLOOD COUNT 4.33 x10^6/uL (3.50-5.40); RED CELL DISTRIBUTION WIDTH 12.5 % (11.5-14.5)
[2020-04-24 08:38] LABS: ALBUMIN 3.5 g/dL (3.4-5.0); C REACTIVE PROTEIN 7.6 mg/L (0-3.3); CALCIUM 8.1 mg/dL (8.5-10.1); CREATININE 0.7 mg/dL (0.6-1.0); GFR 92.2; POTASSIUM 4.3 mmol/L (3.5-5.1); TOTAL BILIRUBIN 0.4 mg/dL (0.2-1.0); TOTAL PROTEIN 6.9 g/dL (6.4-8.2)
[2020-04-25 01:24] LABS: HEMOGLOBIN A1C 5.4 % (4.8-5.6)
== END ==
LOC: LAB 08:05
PROVIDERS: ATTEND Physician Assistant Medical
DX: R19.7 Diarrhea, unspecified (principal); Z83.3 Family history of diabetes mellitus
CPT/HCPCS: 36415; 80053; 80061; 83036; 85027; 86140

== ENCOUNTER → 2020-05-22 | Outpatient (CLI) | payer OTHER ==
--- NOTE | 2020-05-25 10:31 | RAD ---
DATE: 05/22/2020 2:46 PM EXAM: MAMMO NICOLLE SCREENING BILATERAL HISTORY: Screening COMPARISON: 04/12/2019 Bilateral CC and MLO views of the breasts were performed. Bilateral breast tomosynthesis was performed in CC and MLO projections. This study was interpreted with the benefit of Computerized Aided Detection (CAD). FINDINGS: Breast Density: HETERO The breast parenchyma Is heterogeneously dense, which could reduce sensitivity of mammography. Breast parenchyma level C No suspicious masses, microcalcifications or architectural distortion is present to suggest malignancy in either breast. The visualized axillae are unremarkable. IMPRESSION: No mammographic evidence of malignancy. BI-RADS CATEGORY: 1 NEGATIVE RECOMMENDED FOLLOW-UP: 12M 12 MONTH FOLLOW-UP Annual screening mammography is recommended, unless clinically indicated sooner based on symptoms or change in physical exam. PQRS compliance statement: Patient information was entered into a reminder system with a target due date for the next mammogram. Mammography is a sensitive method for finding small breast cancers, but it does not detect them all and is not a substitute for careful clinical examination. A negative mammogram does not negate a clinically suspicious finding and should not result in delay in biopsying a clinically suspicious abnormality. "Our facility is accredited by the [employer] Mammography Program."
== END ==
LOC: MAMMO 14:23
PROVIDERS: ATTEND Physician Assistant Medical
DX: Z12.31 Encounter for screening mammogram for malignant neoplasm of breast (principal)
CPT/HCPCS: 77063; 77067

== ENCOUNTER → 2021-02-26 | Outpatient (CLI) | payer OTHER ==
--- NOTE | 2021-02-26 10:24 | RAD ---
EXAM: 3 views of the left foot DATE: 02/26/2021 8:35 AM INDICATION: Reason: LEFT FOOT PAIN WORSE IN THE HEEL / Spl. Instructions: / History: COMPARISON: No Prior FINDINGS: No acute fracture or dislocation. Joint spaces are preserved without significant degenerative/prolife rative change. No significant soft tissue swelling. Calcaneal enthesophytes. IMPRESSION: 1. No acute fracture or dislocation. 2. Calcaneal enthesophytes. Electronically signed by: Du Marinelli MD (02/26/2021 10:21 AM) [id number]
== END ==
LOC: RAD 08:28
PROVIDERS: ATTEND Physician Assistant Medical
DX: M77.8 Other enthesopathies, not elsewhere classified (principal); M79.673 Pain in unspecified foot
CPT/HCPCS: 73630

== ENCOUNTER → 2021-04-15 | Outpatient (CLI) | payer OTHER ==
--- NOTE | 2021-04-15 14:02 | RAD ---
EXAM: Abdomen and pelvis CT without intravenous contrast. HISTORY: Pain. TECHNIQUE: Computed tomographic images of the abdomen and pelvis were obtained without contrast. Mult iplanar reformatting was performed. *One or more of the following individualized dose reduction techniques were utilized for this examina tion: 1. Automated exposure control. 2. Adjustment of the mA and/or kV according to patient size. 3. Use of iterative reconstruction technique. COMPARISON: 05/29/2018. FINDINGS: Evaluation of the lower thorax is unremarkable. There is no suspicious hepatic lesion. The gallbladder is absent. The pancreas, spleen, adrenal glands and kidneys are unremarkable. The stomach is unremarkable. There is no appendicitis. There is distal colonic diverticulosis. There is no convi ncing diverticulitis. The urinary bladder is unremarkable. There is a retroverted uterus. The adnexal regions are unremarkable. The aorta is normal in caliber. There is no lymphadenopathy. There is dege nerative change at the lumbosacral junction, protruding into foraminal and central canal stenosis. IMPRESSION: 1. Colonic diverticulosis. There is no convincing diverticulitis. 2. No alternative acute abdominal or pelvic finding. Electronically signed by: Viki Tracy MD (04/15/2021 2:00 PM) [id number]
== END ==
LOC: CT 11:03
PROVIDERS: ATTEND Physician Assistant Medical
DX: K57.30 Diverticulosis of large intestine without perforation or abscess without bleeding (principal); R10.9 Unspecified abdominal pain; N85.4 Malposition of uterus
CPT/HCPCS: 74176

== ENCOUNTER → 2021-05-24 | Outpatient (CLI) | payer OTHER ==
--- NOTE | 2021-05-24 17:41 | RAD ---
Bilateral digital screening 2-D and 3-D (tomosynthesis) mammogram: Reason for examination: Routine screening. Comparison is made to previous mammograms from 05/22/2020 and 04/12/2019. Bilateral mammograms in CC and oblique projections were obtained with 2-D imaging and 3-D tomosynthes is imaging and reviewed on the workstation. Interpretation was made with the benefit of CAD. Findings: Breast density: Category C. The breasts are heterogeneously dense, which may obscure small masses. There are no suspicious masses, malignant appearing calcifications or architectural distortion. There are small oval asymmetries in the left breast which are stable. Impression: No evidence of malignancy. ASSESSMENT: BI-RADS 2. Benign findings. Recommendations: Routine screening mammograms. This patient's information has been entered into a reminder system for the patient to be notified wit h the results of her examination and a target date for the next mammogram. Your patient's mammogram demonstrates that she has dense breast tissue (breast density category C or D), which could hide abnormalities, and if she has other risk factors for breast cancer that have bee n identified, she might benefit from supplemental screening tests that may be suggested by you as her ordering physician. Dense breast tissue, in and of itself, is a relatively common condition. Therefo re, this information is not provided to cause undue concern, but rather to raise your awareness and t o promote discussion with your patient regarding the presence of other risk factors, in addition to d ense breast tissue. Electronically signed by: Laurita Everett MD (05/24/2021 5:38 PM) [id number]
== END ==
LOC: MAMMO 12:35
PROVIDERS: ATTEND Physician Assistant Medical
DX: Z12.31 Encounter for screening mammogram for malignant neoplasm of breast (principal)
CPT/HCPCS: 77063; 77067